=== PATIENT | male | born 1970 | race Two or more races ===

== ENCOUNTER 2020-11-04 11:14 | Inpatient (IN) | payer OTHER ==
[~2020-11-04] VITALS: Ht 165.1 cm; Wt 70.8 kg
--- NOTE | 2020-11-04 11:23 | NUR ---
to er bed 3, c/o chest sharp pain radiating to the back x 1 week 8/10 pain scale, aaox4, breathing even and unlabored
--- NOTE | 2020-11-04 11:24 | NUR ---
saline lock established, blood drawn
[2020-11-04] MEDS ORDERED: ASPIRIN 81 MG TAB.CHEW PO ONE (11:30)
[2020-11-04] MEDS ORDERED: ASPIRIN 81 MG TAB.CHEW ONE (11:31)
--- NOTE | 2020-11-04 11:37 | NUR ---
blood picked up by lab
[2020-11-04] MEDS ORDERED: HYDR12.55 PO (11:43)
[2020-11-04] MEDS ORDERED: FENO134C PO (11:43)
[2020-11-04 11:46] LABS: BASOPHILS # (AUTO) 0.1 K/uL (0.0-0.2); EOSINOPHILS % (AUTO) 2.1 % (0.0-6.0); HEMATOCRIT 42 % (39-51); HEMOGLOBIN 14.8 g/dL (13.5-17.5); LYMPHOCYTES # (AUTO) 1.8 K/uL (0.8-4.8); LYMPHOCYTES % (AUTO) 29.7 % (20.0-44.0); MEAN CORPUSCULAR HGB CONC 35 g/dl (31.0-36.0); MEAN CORPUSCULAR VOLUME 91 fL (80-96); MONOCYTES # (AUTO) 0.6 K/uL (0.1-1.30); MONOCYTES % (AUTO) 10.1 % (2.0-12.0); NEUTROPHILS # (AUTO) 3.4 K/uL (1.8-8.9); NEUTROPHILS % (AUTO) 57.1 % (43.0-81.0); PLATELET COUNT (AUTO) 261 K/uL (150-450); RED BLOOD CELL COUNT(AUTO) 4.65 MIL/uL (4.5-6.0)
--- NOTE | 2020-11-04 11:46 | NUR ---
called lab for covid antigen swab
--- NOTE | 2020-11-04 11:52 | NUR ---
covid swab done and sent to lab
--- NOTE | 2020-11-04 11:56 | NUR ---
xray at bedside
[2020-11-04 12:00] LABS: CALCIUM, SERUM 8.6 mg/dL (8.5-10.1); CARBON DIOXIDE 24 mmol/L (21-32); CHLORIDE 106 mmol/L (98-107); CREATININE 0.9 mg/dL (0.6-1.3); GLUCOSE 124 mg/dL (74-106); POTASSIUM 4.2 mmol/L (3.5-5.1); SODIUM SERUM 141 mmol/L (136-145); UREA NITROGEN, BLOOD 17 mg/dL (7-18)
--- NOTE | 2020-11-04 13:12 | NUR ---
pt family at bed side
--- NOTE | 2020-11-04 13:20 | NUR ---
spoke to Bhumi wrapper caser of [facility] lewis pt current status Addendum: 11/04/20 at 1321 by KATY MOOKIE bledsoe tel#
[2020-11-04] MEDS ORDERED: NITROGLYCERIN 0.4 MG/TAB BOTTLE ONE (13:26)
--- NOTE | 2020-11-04 13:27 | NUR ---
DR LONDON GAVE A VERBAL ORDER OF 0.4 NITROGLYCERIN SUBLINGUAL TABLET.
--- NOTE | 2020-11-04 14:37 | NUR ---
RECEIVING RN STILL DISCHARGING A PT, WILL CALL AGAIN AFTER 10 MINS TO GIVE A REPORT
--- NOTE | 2020-11-04 15:10 | NUR ---
REPORT GIVEN TO MICK HICKEY FOR WHIT
[2020-11-04] MEDS: ATORVASTATIN 40 MG TABLET PO SCH ×2 (15:55→21:04)
[2020-11-04] MEDS: METOPROLOL TARTRATE 25 MG TABLET PO SCH ×2 (15:56→17:19)
[2020-11-04 16:00] VITALS: BP 144/99
--- NOTE | 2020-11-04 16:10 | NUR ---
RIVETER HELPER ADMITTING NOTES ADMITTED TO UNIT A 50 Y/O MALE VIA GURNEY AT 1520 WITH DX OF CHEST PAIN ACCOMPANIED BY Heike ESPINAL RN. PT IS A/O X4. ABLE TO MAKE NEEDS KNOWN, NO C/O CHEST PAIN OR ANY DISCOMFORTS AT THIS TIME. PT ORIENTED TO STAFF AND ROOM. AMBULATORY WITH STEADY GAIT. AT BEDSIDE. PT WITH IV ACCESS ON RAC G#20 INTACT, PATENT AND FLUSHES WELL. PT PLACED ON EXTERNAL EQUIPMENT SERVICE ASSOCIATE WITH CURRENT READINGS SB-NSR, HR 54-60'S, DENIES ANY CARDIAC DISTRESS VOICED AT THIS TIME. PT HAS INTACT SKIN. CLEAR LUNGS BILATERALLY ON AUSCULTATION, ABDOMEN SOFT NON-TENDER AND WITH POSITIVE BOWEL SOUNDS ON FOUR QUADRANTS. PT ABLE TO MOVE ALL EXTREMITIES W/O LIMITATIONS. SAFETY MEASURES INITIATED: BED PLACED IN LOWEST LOCKED POSITION, SR UP X2 AND CALL LIGHT WITHIN EASY REACH OF PT. WILL CONTINUE TO MONITOR PT.
--- NOTE | 2020-11-04 16:20 | NUR ---
RN NOTES DR SAMUEL MADE AWARE OF PT'S ADMISSION TO UNIT, AWAITING FOR ADMISSION ORDERS.
--- NOTE | 2020-11-04 18:41 | NUR ---
BELT BUCKLE MAKER CLOSING NOTES PT IN BED AWAKE AND WATCHING TV AT THIS TIME. AT BEDSIDE. A/O X4. ABLE TO VERBALIZE NEEDS. ON ROOM AIR, BREATHING EVEN AND UNLABORED, NO SOB NOTED. TELEMONITOR SHOWS SB-NSR, HR ON THE 50-60'S, NO C/O CARDIAC DISTRESS VOICED. IV SL ON RAC #20 INTACT, PATENT AND FLUSHES WELL. ALL NEEDS AND CARE ATTENDED WELL. SAFETY PRECAUTIONS MAINTAINED: BED IN LOWEST LOCKED POSITION, SIDE RAILS UP X2, CALL LIGHT AND BEDSIDE TABLE WITHIN EASY REACH OF PT. WILL ENDORSE WHIT TO STONE FABRICATOR NURSE.
[2020-11-04 20:00] VITALS: BP 144/96
[2020-11-04] MEDS ORDERED: Z GUARD REMEDY 2 OZ OINT TP PRN (20:30)
[2020-11-04] MEDS ORDERED: ONDANSETRON HCL/PF 4 MG/2 ML VIAL IVP PRN (20:30)
[2020-11-04] MEDS ORDERED: MAGNESIUM HYDROXIDE 30 ML UDC PO PRN (20:30)
[2020-11-04] MEDS ORDERED: ACETAMINOPHEN 325 MG TABLET PO PRN (20:30)
--- NOTE | 2020-11-04 21:04 | NUR ---
RN NOTE LIPITOR NOT GIVEN TONIGHT, ALREADY GIVEN EARLIER IN THE AFTERNOON.
[2020-11-04] MEDS: ENOXAPARIN SODIUM 40 MG/0.4 ML DISP.SYRIN SQ SCH (21:11)
[2020-11-05] VITALS (8 sets, daily range): BP systolic 117–139; BP diastolic 77–95
--- NOTE | 2020-11-05 06:56 | NUR ---
RN CLOSING NOTE PT RESTING IN BED, EASILY AWAKENS TO STIMULI. A/OX4. NO C/O PAIN/DISCOMFORT. NO C/O CHEST PAIN DURING THE NIGHT. ON ROOM AIR AND JAVY WELL, NO SOB. IV SITE ON R-AC INTACT/PATENT/FLUSHES WELL. PT AMBULATES TO BR WITH STEADY GAIT. NO ACUTE EVENTS NOTED DURING THE NIGHT. SAFETY MEASURES MAINTAINED, BED IN LOWEST LOCKED POSITION, S/R UPX2, CALL LIGHT WITHIN REACH.
--- NOTE | 2020-11-05 07:30 | NUR ---
MOLD WORKER OPENING NOTES RECEIVED PT AWAKE ON BED AND A/OX4. NO C/O PAIN/DISCOMFORT. NO C/O CHEST PAIN DURING THE NIGHT. ON ROOM AIR, BREATHING EVENLY AND UNLABORED. NOT IN DISTRESS. TELE MONITOR CURRENTLY READING SINUS RHYTHM AT 68BPM. WITH NO COMPLAINTS OF PAIN OR DISCOMFORT AT THIS TIME. WITH IV ACCESS AT RIGHT AC, INTACT/PATENT/FLUSHES WELL. SAFETY MEASURES MAINTAINED, BED IN LOWEST LOCKED POSITION, S/R UPX2, CALL LIGHT WITHIN REACH. WILL CONTINUE TO MONITOR
[2020-11-05 07:36] LABS: BASOPHILS % (AUTO) 0.6 % (0.0-2.0); EOSINOPHILS % (AUTO) 3.5 % (0.0-6.0); HEMATOCRIT 42 % (39-51); HEMOGLOBIN 14.4 g/dL (13.5-17.5); LYMPHOCYTES # (AUTO) 1.6 K/uL (0.8-4.8); LYMPHOCYTES % (AUTO) 30.7 % (20.0-44.0); MEAN CORPUSCULAR HGB CONC 35 g/dl (31.0-36.0); MEAN CORPUSCULAR VOLUME 91 fL (80-96); MONOCYTES # (AUTO) 0.5 K/uL (0.1-1.30); MONOCYTES % (AUTO) 9.5 % (2.0-12.0); NEUTROPHILS # (AUTO) 2.9 K/uL (1.8-8.9); NEUTROPHILS % (AUTO) 55.7 % (43.0-81.0); PLATELET COUNT (AUTO) 232 K/uL (150-450); WHITE BLOOD COUNT (AUTO) 5.1 K/uL (4.3-11.0)
[2020-11-05 08:13] LABS: ALBUMIN 3.5 g/dL (3.4-5.0); BILIRUBIN,TOTAL 0.6 mg/dL (0.2-1.0); CALCIUM, SERUM 9.1 mg/dL (8.5-10.1); PHOSPHORUS 3.6 mg/dL (2.5-4.9); POTASSIUM 3.9 mmol/L (3.5-5.1); TOTAL PROTEIN, SERUM 7.6 g/dL (6.4-8.2)
[2020-11-05 08:21] LABS: THYROID STIMULATING HORMONE 1.394 uIU/mL (0.358-3.74)
[2020-11-05] MEDS: PANTOPRAZOLE 40 MG TABLET.DR PO SCH (08:37)
[2020-11-05] MEDS: HYDROCHLOROTHIAZIDE 25 MG TABLET PO SCH (08:38)
[2020-11-05] MEDS: FENOFIBRATE NANOCRYS (145 MG) 145 MG TABLET PO SCH (08:38)
[2020-11-05] MEDS: METOPROLOL TARTRATE 25 MG TABLET PO SCH ×2 (08:39→17:46)
--- NOTE | 2020-11-05 18:52 | NUR ---
TOOL DRESSER CLOSING NOTES PT AWAKE ON BED AND A/OX4. ON ROOM AIR, BREATHING EVENLY AND UNLABORED. NOT IN DISTRESS. TELE MONITOR CURRENTLY READING SINUS RHYTHM AT 73BPM. WITH IV ACCESS AT RIGHT AC, INTACT/PATENT/FLUSHES WELL. SAFETY MEASURES MAINTAINED, BED IN LOWEST LOCKED POSITION, S/R UPX2, CALL LIGHT WITHIN REACH. WILL ENDORSE TO NEXT SHIFT FOR WHIT.
--- NOTE | 2020-11-05 19:00 | NUR ---
TEST OPERATOR OPENING NOTE RECEIVED PT AWAKE IN BED. A/OX4. PT STABLE ON ROOM AIR. NO SOB NOTED, NO S/S OF RESPIRATORY DISTRESS. PT IS ON EXTERNAL SUBPOENA SERVER READING. NO C/O PAIN AT THIS TIME. IV ACCESS IN LEFT WRIST # 22 SL, IV IS INTACT, PATENT, AND FLUSHING WELL. SAFETY MEASURES MAINTAINED TAT ALL TIMES. BED IN LOWEST LOCKED POSITION, HOB ELEVATED, SIDE RAILS UP X2. CALL LIGHT AND TABLE WITHIN REACH. WILL CONTINUE WITH PLAN OF CARE
--- NOTE | 2020-11-05 19:01 | NUR ---
PRACTICE SUPPORT SPECIALIST NOTES PATIENT HAS COMPLAINTS OF CHEST PAIN RADIATING TO THE BACK AT THE SCALE OF 7/10. DR. ESCOBAR MADE AWARE. WILL MONITOR PATIENT.
[2020-11-05] MEDS ORDERED: IV NS 0.9% 250 ML IV ONE (21:00)
[2020-11-05] MEDS ORDERED: IOHEXOL-350 100 ML VIAL IV ONE (21:00)
[2020-11-05] MEDS ORDERED: MORPHINE SULFATE INJ 2 MG/ML DISP.SYRIN IM PRN (21:00)
[2020-11-05] MEDS: ENOXAPARIN SODIUM 40 MG/0.4 ML DISP.SYRIN SQ SCH (21:03)
[2020-11-05] MEDS: ATORVASTATIN 40 MG TABLET PO SCH (21:42)
--- NOTE | 2020-11-05 21:42 | NUR ---
PT C/O PAIN OF 08/31, PT REFUSED MORPHINE BUT REQUESTED FOR TYLENOL. DR MEDINA MADE AWARE. PER PT REQUEST TYLENOL 650MG PO Q6HR PRN ADMINISTERED PER ORDER. WILL CONTINUE TO MONITOR.
[2020-11-06] VITALS: BP 125/85
[2020-11-06 04:00] VITALS: BP 108/78
--- NOTE | 2020-11-06 06:39 | NUR ---
CERTIFIED ORTHOTIST CLOSING NOTE PT IS AWAKE IN BED AT THIS TIME.A/OX4, ABLE TO MAKE NEEDS KNOWN. PT IS AMBULATORY WITH BRP. PT IS STABLE ON ROOM AIR. NO SOB, S/S OF RESPIRATORY DISTRESS NOTED. PT IS ON EXTERNAL CONSOLE ATTENDANT SR @80. PT DENIES PAIN OR DISCOMFORT AT THIS TIME. SKIN IS INTACT. IV ACCESS IN RIGHT AC # 20, INTACT, PATENT AND FLUSHING WELL. ALL NEEDS HAVE BEEN MET. PAIN MANAGEMENT ADMINISTERED PER ORDER, SAFETY, SEIZURE, AND ASPIRATION PRECAUTIONS MAINTAINED AT ALL TIMES. BED IN LOWEST LOCKED POSITION WITH BED ALARM ON, UPX2, HOB ELEVATED, CALL LIGHT AND TABLE WITHIN REACH. WILL ENDORSE TO ONCOMING NURSE FOR WHIT.
[2020-11-06 06:48] LABS: BASOPHILS % (AUTO) 0.5 % (0.0-2.0); EOSINOPHILS % (AUTO) 3.1 % (0.0-6.0); HEMATOCRIT 42 % (39-51); HEMOGLOBIN 14.5 g/dL (13.5-17.5); LYMPHOCYTES # (AUTO) 1.7 K/uL (0.8-4.8); MEAN CORPUSCULAR HGB CONC 34 g/dl (31.0-36.0); MEAN CORPUSCULAR VOLUME 91 fL (80-96); MONOCYTES # (AUTO) 0.5 K/uL (0.1-1.30); MONOCYTES % (AUTO) 9.1 % (2.0-12.0); NEUTROPHILS # (AUTO) 3.1 K/uL (1.8-8.9); NEUTROPHILS % (AUTO) 56.3 % (43.0-81.0); PLATELET COUNT (AUTO) 232 K/uL (150-450); RED BLOOD CELL COUNT(AUTO) 4.63 MIL/uL (4.5-6.0); WHITE BLOOD COUNT (AUTO) 5.5 K/uL (4.3-11.0)
[2020-11-06 07:03] LABS: CALCIUM, SERUM 8.8 mg/dL (8.5-10.1); CREATININE 1.1 mg/dL (0.6-1.3); PHOSPHORUS 4.2 mg/dL (2.5-4.9); POTASSIUM 3.9 mmol/L (3.5-5.1)
[2020-11-06 08:00] VITALS: BP 135/91
[2020-11-06] MEDS: PANTOPRAZOLE 40 MG TABLET.DR PO SCH (08:32)
[2020-11-06] MEDS: FENOFIBRATE NANOCRYS (145 MG) 145 MG TABLET PO SCH (08:33)
[2020-11-06] MEDS: HYDROCHLOROTHIAZIDE 25 MG TABLET PO SCH (08:35)
[2020-11-06] MEDS: METOPROLOL TARTRATE 25 MG TABLET PO SCH (08:36)
[2020-11-06] MEDS ORDERED: IOHEXOL-350 100 ML VIAL IV ONE (09:25)
[2020-11-06] MEDS ORDERED: METOPROLOL TARTRATE INJ 5 MG/5 ML AMPUL ONE (09:26)
[2020-11-06] MEDS ORDERED: CT SWABBABLE VALVE TRANS SET 1 EA INFUS.SET MC ONE (09:26)
[2020-11-06] MEDS ORDERED: IV NS 0.9% 250 ML IV ONE (09:26)
[2020-11-06] MEDS ORDERED: NITROGLYCERIN 0.4 MG/TAB BOTTLE ONE (09:26)
[2020-11-06] MEDS: METOPROLOL TARTRATE INJ 5 MG/5 ML AMPUL IVP PRN ×2 (09:55→10:00)
[2020-11-06] MEDS ORDERED: NITROGLYCERIN 0.4 MG/TAB BOTTLE SL ONE (10:00)
[2020-11-06 12:00] VITALS: BP 134/86
[2020-11-06] MEDS ORDERED: METO25TA20 PO (15:04)
[2020-11-06] MEDS ORDERED: ATOR40TA PO (15:04)
[2020-11-06 16:00] VITALS: BP 129/82
--- NOTE | 2020-11-06 17:30 | NUR ---
MS HVAC SERVICES PROFESSIONAL NOTES PATIENT WAS SEEN BY DR. ESCOBAR AND ORDERED THE PATIENT FOR DISCHARGE. PATIENT IS FOR DISCHARGE TO HOME. PRESCRIPTION GIVEN TO PATIENT AND DISCHARGE INSTRUCTION PROVIDED. PATIENT VERBALIZED UNDERSTANDING. ALL BELONGINGS CHECKED. ASSISTED PATIENT TO THE LOBBY VIA WHEELCHAIR WITH FAMILY IN STABLE CONDITION. INSTRUCTED TO FOLLOW UP WITH PCP 1 WEEK AFTER DISCHARGE.
[2020-11-06] MEDS ORDERED: NALOXONE PREFILLED SYRINGE 2 MG/2 ML SYRINGE ONE ×2 (18:28→18:29)
[2020-11-06] MEDS ORDERED: ONDANSETRON HCL/PF 4 MG/2 ML VIAL ONE (18:29)
== END 2020-11-06 17:33 | disposition home or self-care (01) | DRG 203 ==
LOC: ER 11:23 → TELE 14:02
PROVIDERS: ADMIT Nurse Practitioner Acute Care; ATTEND Student in an Organized Health Care Education/Training Program
DX: R07.89 Other chest pain (principal); E78.5 Hyperlipidemia, unspecified; I10 Essential (primary) hypertension; Z20.822 Contact with and (suspected) exposure to COVID-19; Z79.899 Other long term (current) drug therapy; R73.03 Prediabetes; R91.1 Solitary pulmonary nodule
CPT/HCPCS: 36415; 71045-TC; 75574; 80048-TC; 80053-TC; 80061-TC; 83735-TC; 84100-TC; 84443-TC; 84484-TC; 85025-TC; 87081-TC; 93307-TC; C9803; G0378; J1650; J2310; J2405; J3490; J7050; Q9967